=== PATIENT | female | born 1970 | race Caucasian/White ===

== ENCOUNTER 2024-09-10 06:27 | Day surgery (SDC) | payer OTHER ==
[~2024-09-10] VITALS: Ht 157.5 cm; Wt 63.6 kg
[2024-09-10] MEDS ORDERED: ALBU18HF12 PO (06:46)
[2024-09-10] MEDS ORDERED: MONT-40 PO (06:46)
[2024-09-10] MEDS ORDERED: ATOR10TA69 PO (06:46)
[2024-09-10] MEDS ORDERED: MIDAZOLAM HCL 2 MG/2 ML VIAL ONE (07:37)
[2024-09-10] MEDS ORDERED: FentaNYL CITRATE PF 100 MCG/2 ML VIAL ONE (07:37)
[2024-09-10] MEDS: SODIUM CHLORIDE 0.9% 1,000 ML IV ONE (07:43)
[2024-09-10 09:27] VITALS: PULSE 71; RESP 20; O2SAT 100
[2024-09-10] MEDS ORDERED: MethylPREDNISolone SOD SUCC 125 MG/2 ML VIAL ONE (09:58)
[2024-09-10] MEDS: MethylPREDNISolone SOD SUCC 125 MG/2 ML VIAL IVP ONE (09:58)
== END 2024-09-10 12:00 | disposition home or self-care (01) ==
LOC: SURGERY 06:27
PROVIDERS: ATTEND Internal Medicine Critical Care Medicine
DX: R05.3 Chronic cough (principal); J38.4 Edema of larynx; B37.0 Candidal stomatitis; Z87.01 Personal history of pneumonia (recurrent); Z79.899 Other long term (current) drug therapy; Z98.890 Other specified postprocedural states
CPT/HCPCS: 31623; 87206; 87101; 87220; 87070; 88108; 31624; 71045; 87015; J3010; J2250; J2919